=== PATIENT | male | born 2000 | race Two or more races ===

== ENCOUNTER 2024-06-01 16:03 | Emergency (ER) | payer MEDICAID, SELFPAY ==
[2024-06-01 16:28] VITALS: BP 126/68; PULSE 88; RESP 18; TEMP 36.9; O2SAT 100; BMI 26.8
--- NOTE | 2024-06-01 16:43 | EDNOTE_ITS ---
ED Wound/Laceration-RME/HPI General Chief Complaint: Wound/Laceration Stated Complaint: laceration to 4th finger on left hand Time Seen by Provider: 06/01/24 16:12 Arrival date/time: 06/01/24 16:03 RME / HPI RME / HPI narrative: 23-year-old male patient with no significant medical history, came in for evaluation regarding finger laceration. Injury sustained about few minutes prior to ER visit, patient was helping his mom carry a box, and accidentally dropped on the metal, resulting to nongaping laceration, left ring finger, severity mild. Denies any other injury. No medication was taken prior to arrival. Tetanus vaccination is unknown. Related Data Previous Rx's ?Medication ?Instructions ?Recorded ibuprofen 600 mg tablet 600 mg PO TID #30 tabs 06/01/24 Allergies Allergy/AdvReac Type Severity Reaction Status Date / Time No Known Allergies Allergy Verified 01/02/24 12:20 Review of Systems Review of Systems Narrative Review of Systems: Review of system reviewed and within normal limits except mentioned in HPI ED Exam Narrative Physical exam: VITAL SIGNS: Reviewed. GENERAL APPEARANCE: Alert and interactive, follows commands, no acute distress, HEAD AND FACE: Non-traumatic. ENT: PERRL, pink conjunctivitis, eyelid no trauma, Mucous membrane moist. NECK: Supple, nontender, no nuchal rigidity. CHEST: No tenderness, no crepitus, no paradoxical movement, no retractions. LUNGS: Clear, well ventilated, symmetric, no rales, no wheezing, no ronchi, no stridor, good breath sounds bilaterally. HEART: Regular rate, regular rhythm, no murmur, no gallops. ABDOMEN: Soft, positive bowel sounds, nondistended, no guarding, nontender, no rebound, no masses, RECTAL: Deferred. GENITAL: Deferred. NEUROLOGICAL: Gross motor function intact sensory function intact, Appropriate for age. MUSCULOSKELETAL: low back nontender, full range of motion. EXTREMITIES: Nontender, full range of motion. SKIN: Color pink, dry, no rash, 1 cm nongaping laceration, left ring finger, not gaping, no abrasions, no contusions. LYMPHATICS: Deferred. Course Quality Measures none Orders Category Date Time Status Bacitracin Oint Tube Med 06/01/24 16:41 Discontinued See Dose Instructions TOP X1 ONE Ibuprofen Tab [Motrin Tab] Med 06/01/24 16:43 Discontinued 600 mg PO X1 ONE Tet,Diphth,Pertuss(Acell)-Tdap [Boostrix Vacc] Med 06/01/24 16:40 Discontinued 0.5 ml IMI .ONCE ONE Vital Signs Vital signs: Vital Signs Temperature 98.5 F 06/01/24 16:28 Pulse Rate 88 06/01/24 16:28 Respiratory Rate 18 06/01/24 16:28 Blood Pressure 126/68 06/01/24 16:28 Pulse Oximetry (%) 100 06/01/24 16:28 Oxygen Delivery Method Room Air 06/01/24 16:28 Wound / Laceration MDM Narrative MDM Narrative:: 23-year-old male patient with no significant medical history, came in for evaluation regarding finger laceration. Injury sustained about few minutes prior to ER visit, patient was helping his mom carry a box, and accidentally dropped on the metal, resulting to nongaping laceration, right index finger, severity mild. Denies any other injury. No medication was taken prior to arrival. Tetanus vaccination is unknown. Imaging not needed send patient is able to bend and extend the finger without any limitation. Wound cleansed with skin cleanser, and sterile dressing applied. There is no need to do stitches since laceration is not gaping. Patient data External records reviewed:: None Clinical information provided by:: patient Social determinants that could affect healthcare access:: none Patient has the following chronic illnesses:: None How is presenting disease/condition affected by chronic disease/condition?: no chronic disease Evaluation data The following diagnostics were reviewed and interpreted by me:: other (specify) Lab and/or radiology exams considered but not ordered:: None Interpretation Summary: Plan Medications / Prescriptions Medications or Prescriptions considered but not ordered:: None Medication administrations:: Medication Administration History Discontinued Medications Bacitracin (Bacitracin Oint 15 Gm Tube) 0 gm TOP X1 ONE Stop: 06/01/24 16:42 Last Admin: 06/01/24 17:23 Dose: 15 gram Documented By: GM Diphtheria/Tetanus/Acell Pertussis (Diphth,Pertuss(Acell),Tet Vac 0.5 Ml Vial) 0.5 ml IMi .ONCE ONE Stop: 06/01/24 16:41 Last Admin: 06/01/24 17:23 Dose: 0.5 ml Documented By: GM Ibuprofen (Ibuprofen Tab 600 Mg Tablet) 600 mg PO X1 ONE Stop: 06/01/24 16:44 Last Admin: 06/01/24 17:23 Dose: 600 mg Documented By: JOY Motrin, Boostrix, and bacitracin dressing Consultations Consultation(s) initiated? (list below): No Diagnosis Wound Differential Diagnosis: laceration, abrasion and avulsion of skin Most likely diagnosis given after review of the tests above:: Finger laceration Admission Indicated Admission indicated?: not indicated Admission Request Was there a request for admission?: No Disposition Plan Disposition Plan: Discharge Discharge Attestation Discharge Attestation: The patient and all family members were given an opportunity to ask questions and understood the discharge instructions. Discharge instructions specifically effects, indications for sooner follow up or return to the emergency department, and the expected course of current diagnosis. Patient condition: Stable Discharge Plan Plan Patient Disposition: HOME (Self Care) Disposition Comment: Stable Prescriptions/Referrals Prescriptions/Med Rec: New ibuprofen 600 mg tablet 600 mg PO TID Qty: 30 0RF Referrals: No Primary/Family,Physician [Primary Care Provider] - In 1 week Problem List Clinical Impression: Laceration of finger Patient/Caregiver Discharge Instructions Discharge Activity: activity as tolerated Education Materials: ED Wound Check (No Infection) Additional Instructions: Thank you for the opportunity for serving you today. You are stable for discharged . You are advised to: Follow-up with your PCP in 1 to 2 days Return to ED for worsening of symptoms Increase oral fluids Daily dressing with Neosporin as needed Print Language: Solomon Islander Stand Alone Forms: Luli Award Info., Patient Portal Info Letter GUILLERMINA/CONOR Supervising Physician SANDRA Supervising Physician: MD Juan
[2024-06-01] MEDS: IBUPROFEN TAB 600 MG TABLET PO (17:23)
[2024-06-01] MEDS: BACITRACIN OINT 15 GM TUBE TOP (17:23)
[2024-06-01] MEDS: DIPHTH,PERTUSS(ACELL),TET VAC 0.5 ML VIAL IMi (17:23)
== END 2024-06-01 18:13 | disposition home or self-care (01) ==
PROVIDERS: Emergency Provider Emergency Medicine
DX: S61.215A Laceration without foreign body of left ring finger without damage to nail, initial encounter (principal); X58.XXXA Exposure to other specified factors, initial encounter; Z23 Encounter for immunization
CPT/HCPCS: 90471; 90715; 99282; A9270

== ENCOUNTER 2024-06-03 02:11 | Emergency (ER) | payer MEDICAID, SELFPAY ==
[2024-06-03 02:18] VITALS: BP 123/77; PULSE 72; RESP 18; TEMP 36.6; O2SAT 99
--- NOTE | 2024-06-03 02:23 | PD.EDSKIN ---
ED Skin Abcess FB-RME/HPI General Chief complaint: Skin/Abscess/Foreign Body Stated complaint: RE CHECK WOUND LEFT FINGER Time Seen by Provider: 06/03/24 02:13 Arrival date/time: 06/03/24 02:11 23 year old male present to emergency room for wound check on laceration finger sustain on . Pt report pain has improved but was advised to come to ED for recheck. LOCATION: Finger SEVERITY: Symptoms are described as being severe with limitations on activities of daily living QUALITY: Symptoms are described as being dull or achy CONTEXT: accidentally cut himself at home while carrying heavy box DURATION/TIMING: The symptoms started approximately 2 days ago and have been constant this then. ASSOCIATED SYMPTOMS: The patient is unable to identify any other associated symptoms. MODIFYING FACTORS: The patient is unable to identify any alleviating or aggravating symptoms. PERTINENT ROS: no fevers, no headache, no neck or chest pain, no unexplained nausea or vomiting, no focal neurological deficits REVIEW OF SYSTEMS: See History of Present Illness - with the exception of those mentioned in the history of present illness, all other systems reviewed and reported as negative GENERAL: In general the patient is awake, interactive, in an emergency department gurney. HEAD/EYES/EARS/NOSE/THROAT: normo-cephalic, atraumatic, mucus membranes are moist, anicteric, palpebral conjunctiva is pink, trachea is midline. CARDIOVASCULAR: regular rate and regular rhythm, no murmurs, heart sounds are not distant, strong pulses in all four extremities that are equal and symmetric bilateral upper and lower extremities, normal capillary refill. NEUROLOGICAL: cranio-facial features are symmetric, moves all four extremities equally without obvious limitations or weakness. EXTREMITY:Left finger ring healing wound distal aspect, cap refill < 2sec no tenderness to palpation over the long bones or large joints of the bilateral upper and lower extremities, no unilateral leg swelling and no peripheral edema. SKIN: warm, dry, well-perfused, no jaundice, no rash, no telangiectasias or petechia. PSYCH: calm, cooperative, no evidence of psychosis or agitation Related Data Previous Rx's ?Medication ?Instructions ?Recorded ibuprofen 600 mg tablet 600 mg PO TID #30 tabs 06/01/24 cephalexin 500 mg capsule 500 mg PO QID 10 days #40 caps 06/03/24 Allergies Allergy/AdvReac Type Severity Reaction Status Date / Time No Known Allergies Allergy Verified 01/02/24 12:20 Course Course Course Narrative: plan wound is healing well cap refill intact no sign of compartment syndrome rom/strenght intact rx: keflex 500mg qid for 10 days first dose given prior to discharge finger splint placed and wound care Quality Measures none Orders Category Date Time Status cephALEXin [Keflex] Med 06/03/24 02:22 Discontinued 500 mg PO X1 ONE Vital Signs Vital signs: Vital Signs Temperature 97.9 F 06/03/24 02:18 Pulse Rate 72 06/03/24 02:18 Respiratory Rate 18 06/03/24 02:18 Blood Pressure 123/77 06/03/24 02:18 Pulse Oximetry (%) 99 06/03/24 02:18 Oxygen Delivery Method Room Air 06/03/24 02:18 Skin / Abscess / Foreign Body Patient data External records reviewed:: [facility] previous records Clinical information provided by:: patient Social determinants that could affect healthcare access:: none Patient has the following chronic illnesses:: n/a How is presenting disease/condition affected by chronic disease/condition?: no chronic disease Evaluation data The following diagnostics were reviewed and interpreted by me:: other (specify) (none ) Lab and/or radiology exams considered but not ordered:: n/a Interpretation Summary: n/a Medications / Prescriptions Medications or Prescriptions considered but not ordered:: n/a Medication administrations:: Medication Administration History Discontinued Medications Cephalexin HCl (Cephalexin 250 Mg Capsule) 500 mg PO X1 ONE Stop: 06/03/24 02:23 as stated above Consultations Consultation(s) initiated? (list below): No Diagnosis Skin/Abscess Differential Diagnosis: other (laceration finger, healing ) Most likely diagnosis given after review of the tests above:: wound check, healing laceration Admission Indicated Admission indicated?: not indicated Admission Request Was there a request for admission?: No Disposition Plan Disposition Plan: Discharge Discharge Attestation Discharge Attestation: The patient and all family members were given an opportunity to ask questions and understood the discharge instructions. Discharge instructions specifically effects, indications for sooner follow up or return to the emergency department, and the expected course of current diagnosis. Patient condition: Stable Discharge Plan Plan Patient Disposition: HOME (Self Care) Prescriptions/Referrals Prescriptions/Med Rec: New cephalexin 500 mg capsule 500 mg PO QID 10 Days Qty: 40 0RF No Action ibuprofen 600 mg tablet 600 mg PO TID Qty: 30 0RF Problem List Clinical Impression: Visit for wound check Patient/Caregiver Discharge Instructions Education Materials: ED Wound Care Print Language: Lao Stand Alone Forms: Luli Award Info., Patient Portal Info Letter
[2024-06-03] MEDS: cephALEXin 250 MG CAPSULE 500 MG PO (02:28)
[2024-06-03 02:34] VITALS: RESP 18
== END 2024-06-03 02:35 | disposition home or self-care (01) ==
LOC: SERX 02:30
PROVIDERS: Emergency Provider Emergency Medicine
DX: Z48.00 Encounter for change or removal of nonsurgical wound dressing (principal)
CPT/HCPCS: 99282; A9270

== ENCOUNTER 2024-06-18 03:53 | Emergency (ER) | payer MEDICAID, SELFPAY ==
[2024-06-18 03:53] VITALS: BMI 26.6
--- NOTE | 2024-06-18 03:56 | EKG_ITS ---
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
[2024-06-18 04:03] VITALS: BP 144/90; PULSE 69; RESP 16; TEMP 36.7; O2SAT 99
--- NOTE | 2024-06-18 04:38 | PD.EDCHEST ---
ED Chest Pain RME/HPI General Chief Complaint: Chest Pain Stated Complaint: CHEST PAIN X 1WK Time Seen by Provider: 06/18/24 04:34 Arrival date/time: 06/18/24 03:53 23M with no significant PMH presents to ED with several weeks of intermittent chest pain. Patient had a cough, but that is no longer present. 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 Pain is worse with movement. Patient denies fall/trauma and SOB. Limitations: no limitations Related Data Previous Rx's ?Medication ?Instructions ?Recorded ibuprofen 600 mg tablet 600 mg PO TID #30 tabs 06/01/24 Allergies Allergy/AdvReac Type Severity Reaction Status Date / Time No Known Allergies Allergy Verified 01/02/24 12:20 Review of Systems Review of Systems Systems Reviewed: All systems reviewed, normal except as documented Constitutional Constitutional: Reports system reviewed and no additional complaints, except as documented, Denies fever(s) and Denies headache(s) ENT Ears, Nose, Mouth, and Throat: Denies disequilibrium and Denies headache(s) Cardiovascular Cardiovascular: Reports system reviewed and no additional complaints, except as documented, Reports as per HPI, Reports chest pain and Denies dyspnea Respiratory Respiratory: Reports system reviewed and no additional complaints, except as documented, Denies cough and Denies dyspnea Gastrointestinal Gastrointestinal: Reports system reviewed and no additional complaints, except as documented, Denies abdominal pain, Denies nausea and Denies vomiting Neurologic Neurologic: Reports system reviewed and no additional complaints, except as documented, Denies confusion, Denies disequilibrium and Denies headache(s) Psychiatric Psychiatric: Denies confusion Past Medical History Past Medical History CARDIAC: Negative Congestive Heart Failure RESPIRATORY: Negative Chronic Obstructive Pulmonary Disease (COPD) GENITOURINARY: Negative Renal Disease ENDOCRINE: Negative Diabetes Mellitus Type 1 or Diabetes Mellitus Type 2 Social History SMOKING STATUS: Never smoker ED Exam General Limitations: Present no limitations General appearance: Present alert and in no apparent distress Head Head exam: Present atraumatic Eye Eye exam: Present normal appearance, PERRL and EOMI ENT ENT exam: Present normal exam, normal oropharynx and mucous membranes moist Neck Neck exam: Present normal inspection, full ROM and trachea midline Chest Chest inspection: Present symmetric chest wall rise and tenderness (L side) Respiratory Respiratory exam: Present normal lung sounds bilaterally Cardiovascular Cardiovascular exam: Present regular rate, normal rhythm and normal heart sounds Abdominal Exam Abdominal exam: Present soft and normal bowel sounds Extremities Exam Extremities exam: Present normal inspection and full ROM Back Exam Back exam: Present normal inspection and full ROM Neurological Exam Neurological exam: Present alert, oriented X3 and CN II-XII intact Psychiatric Psychiatric exam: Present normal affect and normal mood Skin Skin exam: Present warm, dry, intact and normal color Course Quality Measures none Orders Category Date Time Status EKG (ED ONLY) *Do not use* NOW Care 06/18/24 03:56 Completed EKG (ED Only) Stat Exams 06/18/24 03:56 Draft CYCLObenzaPRINE [Flexeril] Med 06/18/24 04:42 Once 5 mg PO X1 ONE Naproxen [Naprosyn] Med 06/18/24 04:42 Once 500 mg PO X1 ONE Vital Signs Vital signs: Vital Signs Temperature 98.0 F 06/18/24 04:03 Pulse Rate 69 06/18/24 04:03 Respiratory Rate 16 06/18/24 04:03 Blood Pressure 144/90 H 06/18/24 04:03 Pulse Oximetry (%) 99 06/18/24 04:03 Oxygen Delivery Method Room Air 06/18/24 04:03 O2 at 99% on RA and WNLs Chest Pain MDM Narrative MDM Narrative:: 23M with no significant PMH presents to ED with several weeks of intermittent chest pain. Patient had a cough, but that is no longer present. 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 Pain is worse with movement. Patient denies fall/trauma and SOB. Physical exam reveals some L chest wall tenderness. ROM intact. Clear lungs. Patient is afebrile, calm, and alert. EKG is NSR. Pain likely MSK in nature. 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 Patient data External records reviewed:: [facility] previous records Clinical information provided by:: patient Social determinants that could affect healthcare access:: none Patient has the following chronic illnesses:: none How is presenting disease/condition affected by chronic disease/condition?: no chronic disease Evaluation data The following diagnostics were reviewed and interpreted by me:: EKG tracing(s) Lab and/or radiology exams considered but not ordered:: ordered Interpretation Summary: above Medications / Prescriptions Medications or Prescriptions considered but not ordered:: ordered Medication administrations:: Medication Administration History Cyclobenzaprine HCl (Cyclobenzaprine 5 Mg Tablet) 5 mg PO X1 ONE Stop: 06/18/24 04:43 Naproxen (Naproxen 250 Mg Tablet) 500 mg PO X1 ONE Stop: 06/18/24 04:43 above Consultations Consultation(s) initiated? (list below): No Diagnosis Chest Pain Differential Diagnosis: fracture of rib, pneumothorax, stable angina, unstable angina pectoris, atypical chest pain, st elevation myocardial infarction, costochondritis, chest pain, biliary colic and other (PE, CAP) Most likely diagnosis given after review of the tests above:: chest wall muscle strain Admission Indicated Admission indicated?: not indicated Admission Request Was there a request for admission?: No Disposition Plan Disposition Plan: Discharge Discharge Attestation Discharge Attestation: The patient and all family members were given an opportunity to ask questions and understood the discharge instructions. Discharge instructions specifically effects, indications for sooner follow up or return to the emergency department, and the expected course of current diagnosis. Patient condition: Stable Discharge Plan Plan Patient Disposition: HOME (Self Care) Disposition Comment: Stable Prescriptions/Referrals Prescriptions/Med Rec: No Action ibuprofen 600 mg tablet 600 mg PO TID Qty: 30 0RF Referrals: Temporary Provider,ED [Primary Care Provider] - In 1 week Problem List Clinical Impression: Chest wall muscle strain Patient/Caregiver Discharge Instructions Education Materials: ED Chest Wall Strain (Child) Additional Instructions: Please follow-up with PCP within 24-48 hours and return immediately if symptoms worsen. If problem persists, recommend outpatient PT and/or MRI follow-up. In the meantime, rest, use ice/heat, and/or compression. Ibuprofen/Tylenol can be used simultaneously for greater fever/pain control. Print Language: Korean Stand Alone Forms: Patient Portal Info Letter GUILLERMINA/CONOR Supervising Physician SANDRA Supervising Physician: Dr. Mercedes
[2024-06-18] MEDS: CYCLObenzaPRINE 5 MG TABLET PO (04:49)
[2024-06-18] MEDS: NAPROXEN 250 MG TABLET 500 MG PO (04:50)
== END 2024-06-18 04:53 | disposition home or self-care (01) ==
PROVIDERS: Emergency Provider Emergency Medicine
DX: S29.011A Strain of muscle and tendon of front wall of thorax, initial encounter (principal); X58.XXXA Exposure to other specified factors, initial encounter
CPT/HCPCS: 93005; 99283; A9270

== ENCOUNTER 2024-07-12 16:33 | Emergency (ER) | payer MEDICAID, SELFPAY ==
--- NOTE | 2024-07-12 17:00 | EKG_ITS ---
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
[2024-07-12 17:01] VITALS: BP 115/77; PULSE 82; RESP 18; TEMP 37.2; O2SAT 97; BMI 27.8
--- NOTE | 2024-07-12 17:01 | PD.EDDIZZY ---
ED Dizzyness RME/HPI General Chief Complaint: Dizziness Stated Complaint: DIZZY, CHEST PAIN X 4 DAYS; VOMITING X 1 DAY Time Seen by Provider: 07/12/24 16:38 Arrival date/time: 07/12/24 16:33 RME / HPI RME / HPI Narrative: Patient is a 24-year-old male who presents to the ED with complaint of dizziness, headaches, chest pain, and 1 episode of vomiting onset yesterday. Notes exposure to sick contacts. States the dizziness not room spinning, but is more of a lightheaded feeling. No shortness of breath. No syncope or presyncope. Related Data Previous Rx's ?Medication ?Instructions ?Recorded ibuprofen 600 mg tablet 600 mg PO TID #30 tabs 06/01/24 Allergies Allergy/AdvReac Type Severity Reaction Status Date / Time No Known Allergies Allergy Verified 07/12/24 16:37 Review of Systems Review of Systems Narrative Review of Systems: Review of systems negative except as outlined in the HPI. Past Medical History Past Medical History CARDIAC: Negative Congestive Heart Failure RESPIRATORY: Negative Chronic Obstructive Pulmonary Disease (COPD) GENITOURINARY: Negative Renal Disease ENDOCRINE: Negative Diabetes Mellitus Type 1 or Diabetes Mellitus Type 2 Social History SMOKING STATUS: Never smoker ED Exam Narrative Physical exam: Constitutional: no acute distress, age appropriate, non-toxic Eyes: PERRL, conjunctivae w/o pallor, EOMI HENT: normocephalic, atraumatic. Oral mucosa moist Respiratory Effort: no stridor, effort normal, no retractions Breath sounds: Clear bilaterally; No rales, No rhonchi, No wheezing Cardiovascular: regular rhythm, S1 and S2 normal, no murmur Abdominal: soft; non-distended, non-tender Musculoskeletal: no deformities, no swelling, no LE edema Skin: warm, dry; No rash Neurology: alert, oriented X 4. Normal gait. Moves all extremities spontaneously. Cranial nerves II through XII intact. 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 Psychology: cooperative, normal mood Course Quality Measures none Orders Category Date Time Status Bedside Influenza A&B Antigen Test NOW Care 07/12/24 17:00 Completed EKG (ED ONLY) *Do not use* NOW Care 07/12/24 17:00 Completed EKG (ED Only) Stat Exams 07/12/24 17:00 Draft CBC Stat Lab 07/12/24 17:10 Completed CMP [Comprehensive Metabolic Panel] Stat Lab 07/12/24 17:10 Completed Acetaminophen Tab [Tylenol ES Tab] Med 07/12/24 17:01 Discontinued 1,000 mg PO X1 ONE Ibuprofen Tab [Motrin Tab] Med 07/12/24 17:01 Discontinued 600 mg PO X1 ONE Vital Signs Vital signs: Vital Signs Temperature 99 F 07/12/24 17:01 Pulse Rate 82 07/12/24 17:01 Respiratory Rate 18 07/12/24 17:01 Blood Pressure 115/77 07/12/24 17:01 Pulse Oximetry (%) 97 07/12/24 17:01 Oxygen Delivery Method Room Air 07/12/24 17:01 Dizziness MDM Narrative MDM Narrative:: 24-year-old male presents with lightheadedness, headaches, chest pain. Differential diagnoses include ACS, PE, cerebellar stroke, viral syndrome, influenza, Highly doubt cerebellar stroke given lack of risk factors, and patient ambulates with a normal steady gait. Normal neuroexam. Unlikely acute coronary syndrome as patient has normal EKG and lacks risk factors. Very low suspicion for PE as patient is PERC negative. Likely viral syndrome. Patient felt better after medications. Counseled to follow-up with primary care, rest and drink plenty of fluids. Strict return to ED precautions given Patient data External records reviewed:: [facility] previous records Clinical information provided by:: patient Social determinants that could affect healthcare access:: none Patient has the following chronic illnesses:: None How is presenting disease/condition affected by chronic disease/condition?: no chronic disease Evaluation data The following diagnostics were reviewed and interpreted by me:: lab results and EKG tracing(s) Lab and/or radiology exams considered but not ordered:: None Interpretation Summary: EKG medically necessary in the evaluation of dizziness and interpreted by me and ED physician at the time of patient evaluation. Normal sinus rhythm with a rate of 86. RI and QT intervals within normal limits. No ST/T changes. No STEMI. Interpretation: Normal EKG CBC shows no leukocytosis or anemia CMP shows no electrolyte abnormalities, no ANDER. LFTs less than 3x upper limit of normal Medications / Prescriptions Medications or Prescriptions considered but not ordered:: N/A Medication administrations:: Medication Administration History Discontinued Medications Acetaminophen (Acetaminophen 500 Mg Tablet) 1,000 mg PO X1 ONE Stop: 07/12/24 17:02 Last Admin: 03/04/25 17:14 Dose: 1,000 mg Documented By: ЕКАТЕРИНА Ibuprofen (Ibuprofen Tab 600 Mg Tablet) 600 mg PO X1 ONE Stop: 07/12/24 17:02 Last Admin: 07/12/24 17:14 Dose: 600 mg Documented By: ЕКАТЕРИНА See above Consultations Consultation(s) initiated? (list below): No Diagnosis Dizziness Differential Diagnosis: other (See MDM section) Most likely diagnosis given after review of the tests above:: Viral syndrome Admission Indicated Admission indicated?: not indicated Admission Request Was there a request for admission?: No Disposition Plan Disposition Plan: Discharge Discharge Attestation Discharge Attestation: The patient and all family members were given an opportunity to ask questions and understood the discharge instructions. Discharge instructions specifically effects, indications for sooner follow up or return to the emergency department, and the expected course of current diagnosis. Patient condition: Stable Discharge Plan Plan Patient Disposition: HOME (Self Care) Prescriptions/Referrals Prescriptions/Med Rec: No Action ibuprofen 600 mg tablet 600 mg PO TID Qty: 30 0RF Referrals: No Primary/Family,Physician [Primary Care Provider] - In 1 week Problem List Clinical Impression: Acute viral syndrome Patient/Caregiver Discharge Instructions Education Materials: ED Viral Syndrome (Adult) Additional Instructions: Rest and drink plenty of fluids. Follow-up with primary care. Return to the ED at anytime for new or worsening symptoms. Print Language: Maori Stand Alone Forms: Luli Award Info., Patient Portal Info Letter
[2024-07-12] MEDS: IBUPROFEN TAB 600 MG TABLET PO (17:14)
[2024-07-12] MEDS: ACETAMINOPHEN 500 MG TABLET 1000 MG PO (17:14)
[2024-07-12 17:19] LABS: Basophils % (Auto) 0 % (0-2.5); Eosinophils % (Auto) 1 % (0-10); Hematocrit 43.3 % (41.0-53.0); Immature Granulocytes % (Auto) 0 % (0-0); Immature Granulocytes Auto 0.01 Thou/mm3 (0.00-0.00); Lymphocytes # (Auto) 1.3 Thou/mm3 (1.0-4.8); Lymphocytes % (Auto) 29 % (10-50); Mean Corpuscular HGB Conc 34.6 g/dl (31.0-37.0); Mean Corpuscular Hemoglobin 31.8 pg (25.0-35.0); Mean Corpuscular Volume 92 fL (80-100); Monocytes # (Auto) 0.5 Thou/mm3 (0.0-0.8); Monocytes % (Auto) 11 % (0-12); Neutrophils # (Auto) 2.7 Thou/mm3 (1.8-7.7); Neutrophils % (Auto) 59 % (37-80); Nucleated Red Blood Cell % 0 /100 WBC (0); Platelet Count 152 Thou/mm3 (140-440); RDW Standard Deviation 41.4 fL (35.1-43.9); Red Blood Count 4.71 Miln/mm3 (4.50-5.90); White Blood Count 4.6 Thou/mm3 (3.8-10.6)
[2024-07-12 17:40] LABS: Alanine Aminotransferase 19 U/L (10-49); Albumin, Serum 4.6 gm/dL (3.5-5.0); Albumin/Globulin Ratio 1.5 (1.2-2.2); Alkaline Phosphatase 69 U/L (46-116); Anion Gap 7 (7-16); Aspartate Amino Transferase 16 U/L (0-34); BUN/Creatinine Ratio 12 Ratio (12-20); Bilirubin,Total 0.5 mg/dL (0.3-1.2); Blood Urea Nitrogen 11 mg/dL (9-23); Calcium 9.5 mg/dL (8.3-10.6); Calcium (Corrected) 9.5 mg/dL (8.5-10.1); Carbon Dioxide 30.4 mMol/L (20.0-31.0); Chloride 106 mMol/L (98-107); Creatinine (Component) 0.9 mg/dL (0.6-1.3); Estimated Creatinine Clearance 118.2 mL/min (>60); Glucose 106 mg/dL (74-106); Osmolality,Calculated 284 (275-295); Potassium 3.8 mMol/L (3.4-5.1); Sodium 143 mMol/L (136-145); Total Protein 7.6 gm/dL (5.7-8.2); eGFR > 60 See Note
== END 2024-07-12 21:23 | disposition home or self-care (01) ==
PROVIDERS: Physician Assistant; Emergency Provider Emergency Medicine
DX: B34.9 Viral infection, unspecified (principal)
CPT/HCPCS: 36415; 80053; 85025; 87400; 93005; 99283; A9270